=== PATIENT | male | born 1950 | race Caucasian/White ===

== ENCOUNTER 2018-06-05 18:25 | Emergency (ER) | payer MEDICARE ==
[~2018-06-05] VITALS: Ht 175.3 cm; Wt 60.0 kg
--- NOTE | 2018-06-05 18:37 | NUR ---
[facility]. PT TOLD STAFF THAT HE HAD THOUGHTS OF SI. PER MARISOL PT WOULD NOT RESPOND IF HE HAD A PLAN. BP 180S/90, HR 70S, O2 SAT 96% RA. PT DENIES SI TO NURSE. PT IS A&O X 4. PT DOES NOT ANSWER MANY QUESTIONS. MD AT BEDSIDE.
--- NOTE | 2018-06-05 18:40 | NUR ---
PT DRESSED IN GOWN, BELONGINGS PLACED IN BAGS AND PUT INTO LOCKER. SITTER OUTSIDE THE ROOM.
--- NOTE | 2018-06-05 18:54 | NUR ---
REPORT GIVEN TO ANU MCKEON.
[2018-06-05 19:07] LABS: BASOPHILS % (AUTO) 1 % (0-1); EOSINOPHILS # (AUTO) 0.09 x10^3/uL (0-0.4); EOSINOPHILS % (AUTO) 1 % (1-7); LYMPHOCYTES % (AUTO) 25 % (22-44); MD NO; MEAN CORPUSCULAR HEMOGLOBIN 35.9 pg (27.5-34.5); MEAN CORPUSCULAR VOLUME 105.5 fL (81-97); MEAN PLATELET VOLUME 8.7 fL (7.4-10.4); MONOCYTES # (AUTO) 1.03 x10^3/uL (0.2-0.8); MONOCYTES % (AUTO) 14 % (2-9); NEUTROPHILS % (AUTO) 58 % (42-75); PLATELET COUNT 207 x10^3/uL (130-400); RED BLOOD COUNT 4.18 x10^6/uL (4.38-5.82); RED CELL DISTRIBUTION WIDTH 13.6 % (9.4-14.8)
--- NOTE | 2018-06-05 19:14 | NUR ---
TP RN: TELEPSYCH CONSULT REQUESTED
[2018-06-05 19:16] LABS: ALBUMIN 3.5 g/dL (3.4-5.0); ANION GAP 6 mmol/L (5-15); CALCIUM 9.1 mg/dL (8.5-10.1); CHLORIDE 108 mmol/L (98-107); SALICYLATE LEVEL 3.2 mg/dL (2.8-20.0)
[2018-06-05 19:17] LABS: CREATININE 0.69 mg/dL (0.7-1.3)
[2018-06-05 19:18] LABS: ACETAMINOPHEN < 2 mcg/mL (10-30)
--- NOTE | 2018-06-05 19:35 | NUR ---
PT RESTING ON GURNEY, DENIES SI/HI AT THIS TIME, PROVIDED PT WITH URINE CUP FOR URINE SAMPLE, PT UNABLE TO VOID AT THIS TIME, ROOM SECURED, SITTER AT DOORWAY FOR CONTINOUS MONITORING.
--- NOTE | 2018-06-05 20:05 | NUR ---
PROVIDED PT WITH SANDWICH AND DRINK USING SI SAFETY PRECAUTIONS
[2018-06-05] MEDS ORDERED: PARO30TA45 PO (20:09)
[2018-06-05] MEDS ORDERED: TRAZ-137 PO (20:09)
[2018-06-05] MEDS ORDERED: OMEP-110 PO (20:09)
--- NOTE | 2018-06-05 20:52 | NUR ---
SOC ON TELEPHONE, UPDATED ON PT STATUS, H/X, MEDICATIONS AND VS.
== END 2018-06-05 21:47 | disposition home or self-care (01) ==
LOC: MERGE 18:59 → ED 18:59
DX: F32.9 Major depressive disorder, single episode, unspecified (principal); Z76.0 Encounter for issue of repeat prescription; I10 Essential (primary) hypertension; J44.9 Chronic obstructive pulmonary disease, unspecified; F17.200 Nicotine dependence, unspecified, uncomplicated
CPT/HCPCS: 36415; 80048; 80307; 80329; 82040; 85025; 99283; 99284; G0480

== ENCOUNTER 2018-07-19 05:03 | Emergency (ER) | payer MEDICARE ==
[~2018-07-19] VITALS: Ht 175.3 cm; Wt 72.0 kg
[~2018-07-19 05:03] MED LIST: OMEP-110 PO; PARO30TA45 PO; TRAZ-137 PO
[2018-07-19] MEDS ORDERED: SEROQUEL PO (05:28)
[2018-07-19] MEDS ORDERED: ALBU18HF INH (05:28)
--- NOTE | 2018-07-19 06:00 | NUR ---
PT HERE BY MARISOL FOR STRESS AND ANXIETY. PT PLACED IN GOWN, BELONGINGS TAGGED, BAGGED AND PLACED IN LOCKER. PT CALM AND COOPERATIVE. SITTER AT DOOR.
[2018-07-19 06:38] LABS: BASOPHILS # (AUTO) 0.03 x10^3/uL (0-0.1); BASOPHILS % (AUTO) 1 % (0-1); EOSINOPHILS # (AUTO) 0.05 x10^3/uL (0-0.4); EOSINOPHILS % (AUTO) 1 % (1-7); LYMPHOCYTES # (AUTO) 1.27 x10^3/uL (1-3.4); LYMPHOCYTES % (AUTO) 20 % (22-44); MD NO; MEAN CORPUSCULAR HEMOGLOBIN 33.7 pg (27.5-34.5); MEAN CORPUSCULAR HGB CONC 34.3 g/dL (33.2-36.2); MEAN CORPUSCULAR VOLUME 98.3 fL (81-97); MEAN PLATELET VOLUME 8.2 fL (7.4-10.4); MONOCYTES # (AUTO) 0.54 x10^3/uL (0.2-0.8); MONOCYTES % (AUTO) 8 % (2-9); NEUTROPHILS # (AUTO) 4.62 x10^3/uL (1.8-6.8); NEUTROPHILS % (AUTO) 71 % (42-75); PLATELET COUNT 245 x10^3/uL (130-400); RED BLOOD COUNT 4.63 x10^6/uL (4.38-5.82); RED CELL DISTRIBUTION WIDTH 13.2 % (9.4-14.8)
[2018-07-19 06:41] LABS: ALANINE AMINOTRANSFERASE 35 U/L (12-78); ALBUMIN 3.9 g/dL (3.4-5.0); ANION GAP 9 mmol/L (5-15); CALCIUM 8.6 mg/dL (8.5-10.1); CHLORIDE 105 mmol/L (98-107); CREATININE 0.72 mg/dL (0.7-1.3); SALICYLATE LEVEL 4.7 mg/dL (2.8-20.0)
[2018-07-19 06:43] LABS: ALKALINE PHOSPHATASE 64 U/L (45-117); BILIRUBIN,TOTAL 0.3 mg/dL (0.2-1.0); TOTAL PROTEIN 8.1 g/dL (6.4-8.2)
[2018-07-19 06:44] LABS: ACETAMINOPHEN < 2 mcg/mL (10-30)
--- NOTE | 2018-07-19 07:03 | NUR ---
REPORT TO ARLINE MCKEON
[2018-07-19 08:53] VITALS: BP 132/84
== END 2018-07-19 11:32 | disposition home or self-care (01) ==
LOC: ED 05:20
DX: F31.9 Bipolar disorder, unspecified (principal); F10.20 Alcohol dependence, uncomplicated; Z72.9 Problem related to lifestyle, unspecified
CPT/HCPCS: 36415; 80053; 80307; 80329; 85025; 99284; G0480

== ENCOUNTER 2018-08-31 00:23 | Emergency (ER) | payer MEDICARE ==
[~2018-08-31 00:23] MED LIST changes: +ALBU18HF INH; +SEROQUEL PO
--- NOTE | 2018-08-31 00:30 | NUR ---
PT BIB [facility] TONIGHT AFTER PT CALLED [facility] WITH THOUGHTS OF SI AND DEPRESSION. PT DENIED BY [facility]. PT ADMITS TO [facility] TONIGHT. PER EMS, FSBS 103. VSS EN ROUTE AND UPON ARRIVAL TO [facility]. PT DENIES PLAN FOR SI, BUT STATES HE'S AT THE END OF HIS ROPE. PT BELONGINGS CONFISCATED AND PLACED INTO 1 BAG. AUTO BODY ESTIMATOR RASHMI NOTIFIED OF NEED FOR SECURE ROOM, BUT ROOM NOT AVAILABLE AT THIS TIME. PT HAS SITTER OUTSIDE OF ROOM AT THIS TIME FOR DIRECT OBSERVATION.
--- NOTE | 2018-08-31 01:38 | NUR ---
PER ER SALVAGE ENGINEER. PT RELEASED AND MEDICALLY CLEARED FOR SI FROM ER DR. MARTINEZ. PT TO RECEIVE TAXI VOUCHER TO [facility], AND PT HAS A BUS PASS TO GET [facility] THIS MORNING. PT VSS AT THIS TIME.
[2018-08-31 01:39] VITALS: BP 150/88
--- NOTE | 2018-08-31 01:58 | NUR ---
PT AMBULTATES TO REGISTRATION DESK WITH STEADY GAIT. PT PROVIDED WITH TAXI VOUCHER FOR D/C TO [facility]. PT DENIES ANY OTHER NEEDS PERTIANING TO THIS VISIT.
== END 2018-08-31 02:02 | disposition home or self-care (01) ==
LOC: ED 00:39
DX: F32.1 Major depressive disorder, single episode, moderate (principal); F43.10 Post-traumatic stress disorder, unspecified; I10 Essential (primary) hypertension; J44.9 Chronic obstructive pulmonary disease, unspecified; Z72.89 Other problems related to lifestyle; Z75.9 Unspecified problem related to medical facilities and other health care; Z63.8 Other specified problems related to primary support group
CPT/HCPCS: 99284